=== PATIENT | female | born 1970 | race Caucasian/White ===

== ENCOUNTER 2017-07-25 15:44 | Emergency (ER) | payer MEDICAID | END 2017-07-25 17:30 | disposition home or self-care (01) | LOC: D.ER 15:44 | DX: S70.02XA Contusion of left hip, initial encounter (principal); W19.XXXA Unspecified fall, initial encounter; Y93.89 Activity, other specified; Y92.019 Unspecified place in single-family (private) house as the place of occurrence of the external cause ==

== ENCOUNTER 2017-10-03 12:29 | Emergency (ER) | payer MEDICAID | END 2017-10-03 13:17 | disposition home or self-care (01) | LOC: D.ER 12:29 | DX: S63.502A Unspecified sprain of left wrist, initial encounter (principal); W19.XXXA Unspecified fall, initial encounter; Y93.89 Activity, other specified; Y92.019 Unspecified place in single-family (private) house as the place of occurrence of the external cause; F17.200 Nicotine dependence, unspecified, uncomplicated ==

== ENCOUNTER 2017-12-19 14:39 | Emergency (ER) | payer MEDICAID ==
[~2017-12-19] VITALS: Ht 165.1 cm; Wt 83.0 kg
[2017-12-19 14:52] VITALS: Ht 165.1 cm; Wt 83.0 kg
[2017-12-19] MEDS ORDERED: VOLTAREN75 MG PO (17:06)
[2017-12-19] MEDS ORDERED: BACLOFEN20 M1 PO (17:06)
[2017-12-19 17:21] VITALS: BP 130/81
== END 2017-12-19 17:21 | disposition home or self-care (01) ==
LOC: D.ER 14:39
DX: M54.5 Low back pain (principal); M54.32 Sciatica, left side; M25.551 Pain in right hip; M25.552 Pain in left hip; F17.200 Nicotine dependence, unspecified, uncomplicated

== ENCOUNTER 2018-03-09 15:32 | Emergency (ER) | payer MEDICAID ==
[~2018-03-09] VITALS: Ht 165.1 cm; Wt 83.2 kg
[~2018-03-09 15:32] MED LIST: BACLOFEN20 M1 PO; VOLTAREN75 MG PO
[2018-03-09 15:37] VITALS: Ht 165.1 cm; Wt 83.2 kg
[2018-03-09] MEDS ORDERED: TAMIFLU75 MG PO (17:11)
[2018-03-09 17:40] VITALS: BP 121/77
== END 2018-03-09 17:40 | disposition home or self-care (01) ==
LOC: D.ER 15:32
DX: J11.1 Influenza due to unidentified influenza virus with other respiratory manifestations (principal); R11.0 Nausea; R51 Headache; R53.81 Other malaise; F17.200 Nicotine dependence, unspecified, uncomplicated

== ENCOUNTER 2019-10-15 15:16 | Emergency (ER) | payer OTHER ==
[~2019-10-15] VITALS: Ht 165.1 cm; Wt 84.1 kg
[~2019-10-15 15:16] MED LIST changes: +TAMIFLU75 MG PO
[2019-10-15 15:27] VITALS: Ht 165.1 cm; Wt 84.1 kg
[2019-10-15 15:52] LABS: BASOPHILS 0.2 % (0-2); EOSINOPHILS 1.1 % (0-7); HEMATOCRIT 39.9 % (36.0-48.0); HEMOGLOBIN 13.2 g/dL (12-16); IMMATURE GRANULOCYTES 0.2 % (0-5); LYMPHOCYTES 16.4 % (15-50); MCH 28.1 pg (26.0-34.0); MCHC 33.1 g/dL (31.0-37.0); MCV 84.9 fL (80.0-100.0); MEAN PLATELET VOLUME 8.9 fL (7.4-10.4); MONOCYTES 5.7 % (2-11); NEUTROPHILS 76.4 % (40-80); PLATELET COUNT 279 10x3/uL (130-400); RDW 13.9 % (11.5-14.5); WBC 10.6 10x3/uL (4.8-10.8)
[2019-10-15 15:54] LABS: BILIRUBIN NEGATIVE (NEGATIVE); GLUCOSE NEGATIVE (NEGATIVE); KETONE NEGATIVE (NEGATIVE); NITRITE NEGATIVE (NEGATIVE); UROBILINOGEN NORMAL (NORMAL)
[2019-10-15 15:56] LABS: HCG URINE NEGATIVE (NEGATIVE)
[2019-10-15 16:07] LABS: CALC OSMOLALITY 256 mosm/kg (275-300); CALCIUM 8.6 mg/dL (8.5-10.1); CARBON DIOXIDE 25.4 mmol/L (21.0-32.0); CHLORIDE - SERUM 97 mmol/L (98-107); CREATININE - SERUM 0.9 mg/dL (0.6-1.3); GLUCOSE 96 mg/dL (74-106); POTASSIUM - SERUM 4.2 mmol/L (3.5-5.1); SODIUM 129 mmol/L (136-145); UREA NITROGEN 7 mg/dL (7-18); eGFR NON AFRICAN AMERICAN 71 mL/min (90-120)
[2019-10-15 16:15] LABS: ALBUMIN 3.6 g/dL (3.4-5.0); ALKALINE PHOSPHATASE 80 U/L (30-120); ALT (SGPT) 14 U/L (10-68); AMYLASE - SERUM 38 U/L (25-115); BILIRUBIN - TOTAL 1.11 mg/dL (0.2-1.3); LIPASE 75 U/L (73-393); PROTEIN - SERUM 8.2 g/dL (6.4-8.2)
[2019-10-15 16:21] LABS: TROPONIN-I < 0.017 ng/mL (0.000-0.060)
[2019-10-15] MEDS ORDERED: ZOFRAN ODT4 MG/UDTAB PO (18:12)
[2019-10-15] MEDS ORDERED: BENTYL 20 MG TA20 MG PO (18:12)
[2019-10-15] MEDS ORDERED: LEVAQUIN750 MG PO (18:12)
[2019-10-15] MEDS ORDERED: FLAGYL500 MG PO (18:12)
[2019-10-15 20:17] VITALS: BP 98/50
== END 2019-10-15 20:17 | disposition home or self-care (01) ==
LOC: D.ER 15:16
PROVIDERS: Family Medicine
DX: K57.32 Diverticulitis of large intestine without perforation or abscess without bleeding (principal); R19.7 Diarrhea, unspecified; E87.1 Hypo-osmolality and hyponatremia; R11.0 Nausea